=== PATIENT | male | born 1995 | race Caucasian/White ===

== ENCOUNTER 2017-09-24 11:30 | Emergency (ER) | payer SELFPAY ==
[~2017-09-24] VITALS: Ht 193 cm; Wt 70.0 kg
[~2017-09-24 11:30] MED LIST: DICL50 PO
[2017-09-24 11:34] VITALS: BP 131/67; PULSE 84; RESP 18; O2SAT 96
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
== END 2017-09-24 12:30 | disposition home or self-care (01) ==
LOC: NED 11:30
DX: S60.211A Contusion of right wrist, initial encounter (principal); W50.0XXA Accidental hit or strike by another person, initial encounter
CPT/HCPCS: 99281